=== PATIENT | male | born 1965 | race Caucasian/White ===

== ENCOUNTER 2022-05-11 04:26 | Inpatient (IN) | payer OTHER ==
[~2022-05-11] VITALS: Ht 180.3 cm; Wt 95.3 kg
[~2022-05-11 04:26] MED LIST: ATIVAN0.5 MG; EFFEXOR50 MG; KLONOPIN0.125 MG/T; LEXAPRO5 MG; SEROQUEL25 MG
--- NOTE | 2022-05-11 04:45 | NUR ---
PTE ALERTA Y ORIENTADO X 3 ESFERAS TRAIDO EN AMBULANCIA QUIEN REFIERE EDEMA EN PIERNAS Y GENITALES,PTE CON DIAGNOSTICO DE CIRROSIS HEPATICA,DADO DE YAMIL EL JUEVES DE [facility].SE MICHELLE S/V Y SE PRESENTA A MEDICO DE TURNO.
--- NOTE | 2022-05-11 05:55 | NUR ---
SE ORIENTA PTE SOBRE MOOK DE MUESTRAS LAS CUALES SE EXTRAEN BAJO MEDIDAS ASEPTICAS Y SE ENVIAN A LAB,SE ENTREGA CONTRASTE PARA CT Y SE ORIENTA,SE NOTIFICA EL MISMO.
--- NOTE | 2022-05-11 09:04 | NUR ---
SE REALIZA ADMINISTRACION DE MEDICAMENTOS POR ORDEN MEDICA, SE ORIENTA A PACIENTE SOBRE USO Y EFECTOS.
--- NOTE | 2022-05-11 16:00 | NUR ---
SE RECIBE MASCULINO ALERTA Y ORIENTADO X 3 ESFERAS EN CAM CON BARANDAS ELEVADAS POR SEGURIDAD. PRESENTANDO BUEN PATRON RESPIRATORIO. SE EDUCA SOBRE CONTINUIDAD DE [place] MEDICO EL CUAL REFIERE COMPRENDER. PENDIENTE CONSULTA CON . SE MANTIENE EN OBSERVACION POR CAMBIOS.
[2022-05-12] MEDS ORDERED: HYDROXYZINE PAM25 MG (13:35)
[2022-05-12] MEDS ORDERED: ZOLPIDEM TARTRA10 MG (13:35)
[2022-05-12] MEDS ORDERED: CLONAZEPAM1 MG (13:35)
[2022-05-12] MEDS ORDERED: VENLAFAXINE HC150 MG (13:35)
== END 2022-05-14 18:21 | disposition home or self-care (01) | DRG 433 ==
LOC: ER 04:26 → SURG 20:58 → SEC-K 20:58 → SURG 05-12 00:12
PROVIDERS: ADMIT Internal Medicine; ATTEND Internal Medicine
PROC: 30233D1 Transfusion of Nonautologous Pathogen Reduced Cryoprecipitated Fibrinogen Complex into Peripheral Vein, Percutaneous Approach (ICD-10-PCS; principal; 2022-05-13)
DX: K70.30 Alcoholic cirrhosis of liver without ascites (principal); K76.6 Portal hypertension; N49.2 Inflammatory disorders of scrotum; D64.9 Anemia, unspecified; D70.8 Other neutropenia; R60.1 Generalized edema; Z20.822 Contact with and (suspected) exposure to COVID-19; E11.9 Type 2 diabetes mellitus without complications